=== PATIENT | male | born 1990 | race Caucasian/White ===

== ENCOUNTER 2017-03-16 12:59 | Emergency (ER) | payer MEDICAID ==
[2017-03-16 15:04] LABS: BASOPHIL % 0.1 % (0-2); PLATELET COUNT 332 x10^3mcL (130-400); RED CELL DISTRIBUTION WIDTH 12.7 % (11.5-14.5)
[2017-03-16 15:19] LABS: CARBON DIOXIDE 29.8 mmol/L (21-32); CHLORIDE SERUM 104 mmol/L (98-107); CREATININE SERUM 0.9 mg/dL (0.7-1.3); GFR1 > 60 mL/min; GLUCOSE SERUM 103 mg/dL (74-106); POTASSIUM SERUM 4.7 mmol/L (3.5-5.1); SODIUM SERUM 141 mmol/L (136-145)
[2017-03-16 15:24] LABS: ALBUMIN 4.2 g/dL (3.4-5.0); ALKALINE PHOSPHATASE 113 U/L (46-116); ALT/SGPT 161 U/L (16-63); AST/SGOT 234 U/L (15-37); TOTAL PROTEIN, SERUM 8.5 g/dL (6.4-8.2)
[2017-03-16 19:11] VITALS: BP 124/72
== END 2017-03-16 19:13 | disposition home or self-care (01) ==
LOC: ED 12:59
PROVIDERS: Emergency Medicine Emergency Medical Services
DX: K75.9 Inflammatory liver disease, unspecified (principal)
CPT/HCPCS: 36415; Q0092